=== PATIENT | female | born 1990 | race Caucasian/White ===

== ENCOUNTER 2016-12-09 14:54 | Emergency (ER) | payer MEDICAID, OTHER ==
[~2016-12-09] VITALS: Ht 165.1 cm; Wt 65.0 kg
[2016-12-09 15:09] VITALS: BP 152/82
[2016-12-09] MEDS ORDERED: OXYcodone/APAP 5/325MG TABLET ONE (15:39)
[2016-12-09] MEDS ORDERED: OXYcodone/APAP 5/325MG TABLET PO ONE (16:00)
== END 2016-12-09 17:36 | disposition home or self-care (01) ==
LOC: ED 17:31
DX: L03.031 Cellulitis of right toe (principal); M19.072 Primary osteoarthritis, left ankle and foot
CPT/HCPCS: 99284

== ENCOUNTER 2017-02-17 23:12 | Emergency (ER) | payer MEDICAID ==
[~2017-02-17] VITALS: Ht 172.7 cm; Wt 65.2 kg
[2017-02-17 23:13] VITALS: BP 122/80
[2017-02-17] MEDS ORDERED: OMEP-110 PO (23:51)
[2017-02-17] MEDS ORDERED: IBUP-1223 PO (23:51)
[2017-02-17] MEDS ORDERED: LORazepam 1MG TABLET ONE (23:56)
[2017-02-18] MEDS ORDERED: LORazepam 1MG TABLET PO ONE
[2017-02-18 00:08] LABS: HEMATOCRIT 41.9 % (34.6-47.8); HEMOGLOBIN 14.3 g/dL (11.7-16.4); WHITE BLOOD COUNT 9.9 x10^3/uL (3.4-10)
[2017-02-18 00:17] LABS: ASPARTATE AMINO TRANSFERASE 18 U/L (15-37); BLOOD UREA NITROGEN 8 mg/dL (7-18)
[2017-02-18 00:25] LABS: IS PT STATUS REG ER OR PRE ER? YES
== END 2017-02-18 01:43 | disposition home or self-care (01) ==
LOC: ED 23:50
DX: I49.3 Ventricular premature depolarization (principal)
CPT/HCPCS: 36415; 71010; 80053; 83690; 84436; 84443; 84484; 84703; 85025; 93005; 99285